=== PATIENT | male | born 1975 | race African-American/Black ===

== ENCOUNTER 2018-09-29 01:48 | Emergency (ER) | payer SELFPAY ==
[2018-09-29] MEDS ORDERED: traMADol HCl 50 MG TAB ONE (02:19)
[2018-09-29] MEDS ORDERED: Penicillin V Potassium 250 MG TAB ONE (02:19)
== END 2018-09-29 05:43 | disposition home or self-care (01) ==
LOC: MADERS 01:48
DX: K02.9 Dental caries, unspecified (principal); I10 Essential (primary) hypertension; F17.210 Nicotine dependence, cigarettes, uncomplicated; Z71.6 Tobacco abuse counseling
CPT/HCPCS: 99406